=== PATIENT | female | born 1945 | race Caucasian/White ===

== ENCOUNTER 2017-10-09 21:35 | Inpatient (IN) | payer OTHER, MEDICARE ==
[~2017-10-09] VITALS: Ht 152.4 cm; Wt 84.3 kg
[~2017-10-09 21:35] MED LIST: ATORVASTATIN CA40 MG PO; FUROSEMIDE40 MG PO; LEVEMIR FL100 UNIT/1 SC; METFORMIN HCL750 MG PO; NOVOLIN,HU100 UNITS/ SC; PLAVIX75 MG PO; PRISTIQ50 MG PO; RAMIPRIL10 MG PO; TRAMADOL HCL50 MG PO; VITAMIN D35000 UNIT PO
[2017-10-09 23:04] LABS: HEMATOCRIT 40.9 % (36.0-46.0); HEMOGLOBIN 13.8 G/DL (11.9-15.5); MCH 30.3 PG (29.0-34.0); MCHC 33.7 G/DL (30.0-36.0); MCV 89.7 FL (83-99); PLATELET COUNT 262 K/uL (156-360); RBC DIS.WIDTH-CV 13.2 % (11.8-14.6); RBC DIS.WIDTH-SD 43.3 % (39-53); RED BLOOD COUNT 4.56 M/uL (3.80-5.20); WHITE BLOOD COUNT 12.2 K/uL (4.1-10.2)
[2017-10-09 23:14] LABS: CHLORIDE 102 mEq/L (99-109); POTASSIUM 4.2 mEq/L (3.7-5.4); SODIUM 138 mEq/L (136-147)
[2017-10-09 23:15] LABS: GLUCOSE 271 mg/dL (70-99)
[2017-10-09 23:19] LABS: CREATININE 1.3 mg/dL (0.6-1.3); GFR ESTIMATE (CALCULATED) 43 mL/min/
[2017-10-09 23:20] LABS: UREA NITROGEN (BUN) 23 mg/dL (9-23)
[2017-10-10 01:59] LABS: TROP-I INTERPRETATION NEGATIVE; TROPONIN-I 0.02 ng/mL (0.0-0.30)
[2017-10-10 02:14] LABS: MAGNESIUM 1.8 mg/dL (1.3-2.7)
[2017-10-10] MEDS ORDERED: ALTACE10 MG PO (10:47)
[2017-10-10] MEDS ORDERED: LASIX40 MG PO (10:47)
[2017-10-10] MEDS ORDERED: PLAVIX75 MG PO (10:47)
[2017-10-10] MEDS ORDERED: GLUCOPHAGE XR750 MG PO (10:54)
[2017-10-10] MEDS ORDERED: GLUCOTROL XL5 MG PO (10:54)
[2017-10-10] MEDS ORDERED: ALTOPREV20 MG PO (10:54)
[2017-10-10] MEDS ORDERED: PRISTIQ50 MG PO (10:55)
[2017-10-10] MEDS ORDERED: LEVEMIR100 UNIT/2 SC (10:55)
[2017-10-10] MEDS ORDERED: SYNTHROID25 MCG PO (10:55)
[2017-10-10] MEDS ORDERED: ONDANSETRON HCL4 MG PO (10:56)
[2017-10-10] MEDS ORDERED: ULTRAM50 MG PO (10:56)
[2017-10-10] MEDS ORDERED: FISH OIL 1,0001 EAC7 PO (10:57)
[2017-10-10] MEDS ORDERED: CALTRATE PLUS1 EACH PO (10:57)
[2017-10-10] MEDS ORDERED: VITAMIN D5000 UNI1 PO (10:57)
[2017-10-10] MEDS ORDERED: CENTRUM SILVER1 EAC3 PO (10:58)
[2017-10-10 12:18] LABS: APPEARANCE SL.HAZY ((CLEAR)); BILIRUBIN NEGATIVE; BLOOD NEGATIVE; COLOR YELLOW ((YELLOW)); GLUCOSE (STRIP) NEGATIVE; KETONES NEGATIVE; LEUKOCYTES NEGATIVE; NITRITE NEGATIVE; PROTEIN (STRIP) 100; SPECIFIC GRAVITY 1.014 (1.000-1.030); UROBILINOGEN 0.2 MG/DL (0.2-1.0)
[2017-10-10 12:23] LABS: BACTERIA 3+ /HPF; EPITHELIAL CELLS RARE /HPF; HYALINE CASTS 0-5 /LPF; MUCUS TRACE /LPF; RED BLOOD CELLS 0-5 /HPF (0-5); UCUL ADDED? YES
[2017-10-10 18:03] VITALS: BP 141/60
[2017-10-10 20:43] VITALS: BP 180/75
[2017-10-11] VITALS (7 sets, daily range): BP systolic 140–204; BP diastolic 63–86
[2017-10-11 05:28] LABS: HEMATOCRIT 40.9 % (36.0-46.0); HEMOGLOBIN 13.5 G/DL (11.9-15.5); MCH 29.4 PG (29.0-34.0); MCV 89.1 FL (83-99); PLATELET COUNT 220 K/uL (156-360); RBC DIS.WIDTH-CV 13.2 % (11.8-14.6); RBC DIS.WIDTH-SD 43.3 % (39-53); RED BLOOD COUNT 4.59 M/uL (3.80-5.20); WHITE BLOOD COUNT 7.7 K/uL (4.1-10.2)
[2017-10-11 05:51] LABS: ALBUMIN 3.6 G/DL (3.2-4.8); ALKALINE PHOSPHATASE 47 IU/L (3-129); ALT (GPT) 17 IU/L (3-49); AST (GOT) 20 IU/L (2-34); CHLORIDE 103 MEQ/L (99-109); GFR ESTIMATE (CALCULATED) 58 mL/min/; GLUCOSE 187 mg/dL (70-99); POTASSIUM 3.9 MEQ/L (3.7-5.4); SODIUM 141 MEQ/L (136-147); TOTAL BILIRUBIN 0.6 MG/DL (0.0-1.0); TOTAL PROTEIN 6.2 G/DL (6.4-8.3); UREA NITROGEN (BUN) 17 mg/dL (9-23)
[2017-10-12 01:09] VITALS: BP 150/90
[2017-10-12 08:10] VITALS: BP 136/68
[2017-10-12 11:16] VITALS: BP 152/66
[2017-10-12 16:24] VITALS: BP 157/95
[2017-10-12 18:48] VITALS: BP 142/91
[2017-10-12 19:33] VITALS: BP 141/63
[2017-10-13] VITALS (8 sets, daily range): BP systolic 117–165; BP diastolic 53–80
[2017-10-13 07:22] LABS: ALBUMIN 3.4 G/DL (3.2-4.8); ALKALINE PHOSPHATASE 44 IU/L (3-129); ALT (GPT) 18 IU/L (3-49); AST (GOT) 17 IU/L (2-34); CHLORIDE 101 MEQ/L (99-109); CREATININE 1.2 MG/DL (0.6-1.3); GFR ESTIMATE (CALCULATED) 47 mL/min/; GLUCOSE 167 mg/dL (70-99); POTASSIUM 3.9 MEQ/L (3.7-5.4); SODIUM 140 MEQ/L (136-147); TOTAL BILIRUBIN 0.6 MG/DL (0.0-1.0); TOTAL PROTEIN 5.8 G/DL (6.4-8.3); UREA NITROGEN (BUN) 23 mg/dL (9-23)
[2017-10-14 04:20] VITALS: BP 142/65
[2017-10-14 07:00] VITALS: BP 156/62
[2017-10-14] MEDS ORDERED: AMLODIPINE BESY10 MG PO (15:24)
[2017-10-14] MEDS ORDERED: CEFDINIR300 MG PO (15:24)
[2017-10-14] MEDS ORDERED: APRESOLINE10 MG PO (15:24)
== END 2017-10-14 16:57 | disposition home or self-care (01) | DRG 103 ==
LOC: EME 21:35 → 4EAST 10-10 02:28 → EDOF 10-10 02:28 → ENRESERV 10-10 02:33 → 4EAST 10-10 17:54 → ENPENDDIS 10-14 → 4EAST 10-14 16:57
PROVIDERS: Emergency Medicine; Family Medicine; Internal Medicine
DX: R51 Headache (principal); I11.9 Hypertensive heart disease without heart failure; E11.65 Type 2 diabetes mellitus with hyperglycemia; E66.9 Obesity, unspecified; N39.0 Urinary tract infection, site not specified; F05 Delirium due to known physiological condition; E78.2 Mixed hyperlipidemia; R55 Syncope and collapse; H54.8 Legal blindness, as defined in USA; E11.51 Type 2 diabetes mellitus with diabetic peripheral angiopathy without gangrene; I44.2 Atrioventricular block, complete; I51.7 Cardiomegaly; E66.01 Morbid (severe) obesity due to excess calories; B96.20 Unspecified Escherichia coli [E. coli] as the cause of diseases classified elsewhere; I25.2 Old myocardial infarction; Z79.4 Long term (current) use of insulin; Z85.41 Personal history of malignant neoplasm of cervix uteri; I69.351 Hemiplegia and hemiparesis following cerebral infarction affecting right dominant side; Z85.43 Personal history of malignant neoplasm of ovary; Z90.710 Acquired absence of both cervix and uterus; Z68.41 Body mass index [BMI] 40.0-44.9, adult
CPT/HCPCS: 70450; 70551; 71046; 80048; 80053; 81003; 82310; 82948; 83735; 84484; 85027; 87077; 87086; 87186; 93005; 93306; 99281; 99285; J0360; J0696; J1200; J1650; J1815; J2060; J2405; J2765; J7030